=== PATIENT | male | born 1970 | race Caucasian/White ===

== ENCOUNTER 2017-10-21 10:31 | Outpatient (RCR) | payer OTHER | END 2017-11-25 08:35 | disposition home or self-care (01) | LOC: WSOH 10:31 | DX: S76.811A Strain of other specified muscles, fascia and tendons at thigh level, right thigh, initial encounter (principal); X50.0XXA Overexertion from strenuous movement or load, initial encounter; Y99.0 Civilian activity done for income or pay; Z79.899 Other long term (current) drug therapy ==

== ENCOUNTER 2017-12-09 15:29 | Outpatient (RCR) | payer OTHER | END 2018-02-23 | disposition home or self-care (01) | LOC: WSOH | DX: S76.811D Strain of other specified muscles, fascia and tendons at thigh level, right thigh, subsequent encounter (principal); X50.0XXD Overexertion from strenuous movement or load, subsequent encounter; Y92.810 Car as the place of occurrence of the external cause; Y99.0 Civilian activity done for income or pay ==

== ENCOUNTER → 2021-03-31 | Outpatient (CLI) | payer BC | LOC: COL.RAD 03-24 10:30 | DX: K76.0 Fatty (change of) liver, not elsewhere classified (principal); R16.0 Hepatomegaly, not elsewhere classified; R74.8 Abnormal levels of other serum enzymes ==